=== PATIENT | female | born 1970 | race Caucasian/White ===

== ENCOUNTER 2017-03-27 16:37 | Emergency (ER) | payer OTHER ==
[~2017-03-27] VITALS: Ht 154.9 cm; Wt 102.1 kg
[2017-03-27] MEDS ORDERED: LORAZEPAM1 MG PO (20:21)
[2017-03-27] MEDS ORDERED: LIPITOR80 MG GT (20:21)
[2017-03-27] MEDS ORDERED: PRINIVIL10 MG PO (20:21)
[2017-03-27] MEDS ORDERED: CYCLOBENZAPRINE10 MG PO (20:22)
[2017-03-27] MEDS ORDERED: TRAZODONE HCL300 MG PO (20:22)
[2017-03-27] MEDS ORDERED: COUMADIN5 MG PO (20:22)
[2017-03-27] MEDS ORDERED: LANTUS100 UNITS/ (20:23)
[2017-03-27] MEDS ORDERED: NOVOLIN R100 UNIT/1 INJ (20:24)
[2017-03-27] MEDS ORDERED: NORCO 5-325 TA1 EACH (20:25)
[2017-03-27] MEDS ORDERED: TOPAMAX25 MG PO (20:26)
[2017-03-27] MEDS ORDERED: TRAMADOL HCL50 MG PO (20:38)
[2017-03-27] MEDS ORDERED: NAPROXEN500 MG PO (20:38)
--- NOTE | 2017-03-28 21:46 | EKG ---
[facility] [address] [facility] [place], [place] [address] Signed Normal sinus rhythm Cannot rule out Anterior infarct , age undetermined Abnormal ECG No previous ECGs available Confirmed by DEMETRA BERNARDO MD ([id number]) on 03/28/2017 9:46:11 PM Electronically Signed By: DEMETRA BERNARDO MD 03/28/17 2146 PATIENT NAME: ASHLEE LEONARD Alexi Electrocardiogram DATE OF : 72 PHYSICIAN: DEMETRA BERNARDO MD REPORT #: [id number] REPORT IS CONFIDENTIAL AND NOT TO BE RELEASED WITHOUT AUTHORIZATION
== END 2017-03-27 20:46 | disposition home or self-care (01) ==
LOC: ED 16:37
DX: S23.41XA Sprain of ribs, initial encounter (principal); W51.XXXA Accidental striking against or bumped into by another person, initial encounter; Z79.899 Other long term (current) drug therapy; E11.9 Type 2 diabetes mellitus without complications; Z79.4 Long term (current) use of insulin; Z79.01 Long term (current) use of anticoagulants; Z90.49 Acquired absence of other specified parts of digestive tract; Z98.51 Tubal ligation status; Z90.710 Acquired absence of both cervix and uterus; Z88.7 Allergy status to serum and vaccine; M32.9 Systemic lupus erythematosus, unspecified
CPT/HCPCS: 71020; 93005; 93010; 99283